=== PATIENT | female | born 1960 | race Caucasian/White ===

== ENCOUNTER 2020-09-13 16:57 | Emergency (ER) | payer MEDICARE, MEDICAID ==
[~2020-09-13] VITALS: Ht 162.6 cm; Wt 92.0 kg
[2020-09-13] MEDS ORDERED: normal saline 1000ML IV soln IVB ONE (17:10)
[2020-09-13 17:35] LABS: BASOPHILS # (AUTO) 0.1 X10'3 (0-0.2); BASOPHILS % (AUTO) 2.3 % (0-1); EOSINOPHILS # (AUTO) 0.1 X10'3 (0-0.9); HEMOGLOBIN 13.5 g/dl (12.0-16.0); LYMPHOCYTES # (AUTO) 1.1 X10'3 (1.1-4.8); PLATELET COUNT 65 X10'3 (140-440)
[2020-09-13 17:37] LABS: EOSINOPHILS % (AUTO) 2.1 % (0-6); HEMATOCRIT 39.1 % (35.0-45.0); LYMPHOCYTES % (AUTO) 21.8 % (21-51); MEAN CORPUSCULAR HEMOGLOBIN 37.4 PG (27.0-31.0); MEAN CORPUSCULAR HGB CONC 34.4 g/dL (33.0-36.5); MEAN CORPUSCULAR VOLUME 108.6 FL (78-98); MEAN PLATELET VOLUME 11.3 FL (7.4-10.4); MONOCYTES # (AUTO) 0.7 X10'3 (0-0.9); MONOCYTES % (AUTO) 14.8 % (2-12); NEUTROPHILS # (AUTO) 2.9 X10'3 (1.8-7.7); RED BLOOD COUNT 3.61 X10'6 (4.20-5.60)
[2020-09-13 17:44] LABS: ALANINE AMINOTRANSFERASE 73 U/L (12-78); ALBUMIN 2.4 G/DL (3.4-5.0); ALKALINE PHOSPHATASE 177 IU/L (46-116); ANION GAP 13 (8-16); ASPARTATE AMINO TRANSFERASE 185 U/L (10-37); BLOOD UREA NITROGEN 6 MG/DL (7-18); BUN/CREATININE RATIO 8.3 (6.6-38.0); CALCIUM 8.3 MG/DL (8.5-10.1); CHLORIDE 107 MMOL/L (99-107); CREATININE 0.72 MG/DL (0.40-0.90); GLUCOSE 150 MG/DL (70-104); LIPASE 262 U/L (73-393); POTASSIUM 3.2 MMOL/L (3.5-5.1); SODIUM 145 MMOL/L (135-145); TOTAL CARBON DIOXIDE 25.5 MMOL/L (24-32); eGFR 83 ML/MIN
[2020-09-13 17:59] LABS: ALBUMIN/GLOBULIN RATIO 0.5 (1.1-1.5); TOTAL PROTEIN 7.6 G/DL (6.4-8.2)
[2020-09-13 18:34] LABS: ANISOCYTOSIS 1+; PLATELET ESTIMATE DECREASED; TOTAL CELLS COUNTED 100
[2020-09-13 18:35] LABS: LARGE PLATELETS FEW
[2020-09-13] MEDS ORDERED: ONDA4TAB12 PO (19:19)
[2020-09-13] MEDS ORDERED: POTA20TA19 PO (19:19)
[2020-09-13 19:54] VITALS: BP 154/96
--- NOTE | 2020-09-13 19:56 | NUR ---
Pt is dc ready and hr now 100, afebrile. she is [id number]&OX4 and reports she feels very sleepy, but is agreeable to DC.
--- NOTE | 2020-09-13 19:58 | NUR ---
SHAR, DAUGHTER, CALLED WITH UPDATE AND TOLD PT IS DC READY. 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
--- NOTE | 2020-09-13 20:15 | NUR ---
GAIT TEST AMBULATING 10 FEET USING WALKER AND SBA. PT REPROTS SHE IS WEAK. OUT OF ER WITH WC.
== END 2020-09-13 20:18 | disposition home or self-care (01) ==
LOC: ER 16:59
DX: F10.129 Alcohol abuse with intoxication, unspecified (principal); E86.0 Dehydration; E87.6 Hypokalemia; R11.0 Nausea; Z72.89 Other problems related to lifestyle; Z88.0 Allergy status to penicillin; Y90.9 Presence of alcohol in blood, level not specified
CPT/HCPCS: 36415; 80053; 83690; 85007; 85025; 93005; 96360; 96361; 99284; J7030